=== PATIENT | female | born 1980 | race Caucasian/White ===

== ENCOUNTER 2024-06-18 06:29 | Emergency (ER) | payer OTHER, SELFPAY ==
--- NOTE | 2024-06-18 06:30 | XRR_ITS ---
PROCEDURE INFORMATION: Exam: XR Right Hip Exam date and time: 06/18/2024 6:32 AM Age: 43 years old Clinical indication: Hip pain; Right hip; Patient HX: Muscle cramp TECHNIQUE: Imaging protocol: Radiologic exam of the right hip. Views: 1 view hip with pelvis when performed. COMPARISON: No relevant prior studies available. FINDINGS: Bones/joints: No significant narrowing or spurring. No fracture or dislocation. No acute osseous or joint abnormality.. No acute fracture. Soft tissues: Unremarkable. XR/XR hip RT 2-3V wo/w pel* [id number] IMPRESSION: No acute findings.
[2024-06-18 06:40] VITALS: PULSE 87; RESP 16; O2SAT 97; BMI 37.6
[2024-06-18 06:43] VITALS: BP 188/121; PULSE 82; RESP 16; O2SAT 97
--- NOTE | 2024-06-18 06:45 | W.ED.GENADLT ---
HPI - General Adult General: Chief complaint: General Medical Stated complaint: Right hip pain Time Seen by Provider: 06/18/24 06:30 History of Present Illness: 43-year-old female presents emergency room with complaint of right hip pain. She was lying in bed slightly stretched extending her leg hip and pelvis simultaneously felt a popping sensation over the left hip had severe discomfort. She has been able to bear weight but is quite painful. She was concerned she dislocated her hip. No previous surgery or injury to the hip in the past. Associated symptoms: Deny chest pain, dyspnea or rash Related Data Previous Rx's Medication Instructions Recorded diclofenac sodium 75 mg 75 mg PO Q12H PRN pain #20 tabs 06/18/24 tablet,delayed release Review of Systems Const: Denies: fever(s) or chills Card: Denies: chest pain Resp: Denies: dyspnea GI: Denies: abdominal pain : Denies: dysuria, urinary frequency or urinary urgency Musc: Reports: joint pain (Right hip); Denies: neck pain or back pain Skin/Breast: Denies: rash Physical Exam Const: COMMON NORMALS: no acute distress GENERAL APPEARANCE: cooperative and comfortable ORIENTATION/CONSCIOUSNESS: Yes awake, Yes oriented to person, Yes oriented to place and Yes oriented to time HENMT: COMMON NORMALS: normocephalic, atraumatic and hearing grossly normal bilaterally HEAD & SCALP: normocephalic and atraumatic Resp: COMMON NORMALS: normal respiratory effort, No retractions, No use of accessory muscles and clear to auscultation bilaterally AUSCULTATION: clear to auscultation bilaterally Cardio: COMMON NORMALS: regular rate, regular rhythm and No murmurs present (Cardio) RATE: regular rate RHYTHM: regular rhythm GI: COMMON NORMALS: Soft to palpation and No hepatosplenomegaly present AUSCULTATION: Yes normoactive bowel sounds PALPATION: Yes Soft to palpation, No Tenderness to palpation present (GI), No Guarding due to palpation present (GI) and Yes No hepatosplenomegaly present Extremity: COMMON NORMALS: normal to inspection, capillary refill normal, no clubbing, cyanosis or edema, no calf tenderness and no pedal edema Neuro: SENSORIUM/ORIENTATION: Yes oriented to person, Yes oriented to place and Yes oriented to time Skin: COMMON NORMALS: no rashes or lesions noted GENERAL SKIN EXAM: no rashes or lesions noted Course Vital Signs: Vital signs: Vital Signs Pulse Rate 75 06/18/24 07:29 Respiratory Rate 16 06/18/24 06:43 Blood Pressure 190/109 06/18/24 07:29 Pulse Oximetry 97 06/18/24 07:29 Oxygen Delivery Me thod Room Air 06/18/24 06:43 MDM - General Adult Medical Decision Making No acute findings on x-ray. No fracture. Patient has pain with palpation over the greater trochanter. Suspect she had an articulation of her iliotibial band over the greater trochanter she localizes the pain posterior to the trochanter she is able to walk after anti-inflammatories although it is still somewhat uncomfortable. Blood pressure is elevated. She is going to follow-up with her primary care doctor for this. She discharged home with diclofenac follow-up as needed. We did ambulate patient prior to discharge to was able to bear weight. Lab Data Radiology Impressions Hip/Pelvis X-Ray 06/18/24 06:30 IMPRESSION: No acute findings. All radiology interpretation(s) finalized by discharge Discharge Plan Discharge Patient Disposition: Home Clinical Impression: Right hip pain Condition: Stable Prescriptions: New diclofenac sodium 75 mg tablet,delayed release (DR/EC) 75 mg PO Q12H PRN (Reason: pain) Qty: 20 0RF Discharge Orders: Discharge ED (Routine); Ordered 06/18/24 Ordered By: Sarthak Christianson Discharge Diet: Usual diet Discharge Activity: Increase activity as tolerated Patient Instructions: Opioid Safety, Pain Management Activity Restrictions/Additional Instructions: Thank you for choosing [facility] for your healthcare needs today. It is very important that you follow up as instructed or that you return to the Emergency Department should you have concerns or if your condition changes or worsens in any way. You were seen for right hip pain. X-ray did not show any acute fracture given your description of symptoms it sounds as if it is a soft tissue tendon issue. You can use ice over the lateral portion of the hip you can use the medications that were prescribed today as needed. Follow-up with your primary care doctor if your symptoms persist. Coding Level of Care Code ED Lubricating Machine Tender for Po Torres
[2024-06-18] MEDS: ketorolac 60 mg/2 mL INJ IM (07:01)
--- NOTE | 2024-06-18 07:06 | PC.NURSE ---
PT PRESENTS WITH COMPLAINT OF RIGHT HIP PAIN AFTER EXTENDED HER LEGS WHILE STRETCHING AND STATES SHE FELT HER HIP POP AND HAS HAD DIFFICULTY AMBULATING SINCE. PT DENIES HX OF ISSUE WITH HIP. PT RATES PAIN 04/23. PT DENIES FALLING. PT IS ALERT AND ORIENTED WITH EVEN, UNLABORED RESPIRATIONS WITH PATENT AIRWAY.
[2024-06-18 07:29] VITALS: BP 190/109; PULSE 75; O2SAT 97
== END 2024-06-18 07:44 | disposition home or self-care (01) ==
PROVIDERS: Emergency Provider Family Medicine
DX: M25.551 Pain in right hip (principal)
CPT/HCPCS: 73502; 96372; 99284; J1885

== ENCOUNTER 2024-06-20 14:18 | Outpatient (CLI) | payer OTHER, SELFPAY ==
--- NOTE | 2024-06-20 14:21 | MM_ITS ---
WS: [id number] BILATERAL 3D TOMOSYNTHESIS DIGITAL SCREENING MAMMOGRAPHY WITH CAD CLINICAL INFORMATION: SCREENING HISTORY: Screening mammogram. No current complaints. COMPARISON: 2020 TECHNIQUE: Bilateral CC and MLO views. FINDINGS: Scattered fibroglandular densities bilaterally. No suspicious focal mass, asymmetry, calcifications, or architectural distortion. No evidence of malignancy. Scattered bilateral tiny punctate calcificati ons. MM/MM scr BI tomosynthesis [id number] IMPRESSION: DENSITY: There are scattered areas of fibroglandular density. BI-RADS: 2 - Benign. FOLLOW UP: 1 Year Follow-up Recommend return to annual screening mammography.
== END 2024-06-20 14:19 | disposition home or self-care (01) ==
LOC: RAD 14:19
PROVIDERS: PCP Family Medicine; Visit Provider Family Medicine
DX: Z12.31 Encounter for screening mammogram for malignant neoplasm of breast (principal); R92.323 Mammographic fibroglandular density, bilateral breasts; R92.1 Mammographic calcification found on diagnostic imaging of breast
CPT/HCPCS: 77063; 77067

== ENCOUNTER 2025-02-13 13:49 | Outpatient (CLI) | payer OTHER, SELFPAY ==
--- NOTE | 2025-02-13 13:53 | CT_ITS ---
WS: [id number] CT scan of the chest with IV contrast, additional two-dimensional coronal and sagittal reconstruction was performed. 02/13/2025 Clinical Data: RIGHT LOWER LOBE NODULE Comparison: None. DLP: 641.[address] scans at [facility] use at least one of these dose optimization techniques: automated exposure control; mA and/or kV adjustment per patient size (includes targeted exams where dose is matched to clinical indication); or iterative reconstruction. Findings: No right lower lobe nodules are seen. However there is a soft tissue density measuring 2.5 cm in the medial aspect of the left upper lobe at the T4 level. No enhancement of this density occurs. The heart size is normal with no pericardial effusion. The pulmonary arterial system and thoracic aorta demonstrate no abnormalities or dilatations. The trachea bifurcates into the bronchi. There is no axillary or significant mediastinal adenopathy. The upper abdomen shows no abnormalities. CT/CT chest w con* [id number] Impression: 1. Negative for right lower lobe nodules. 2. Nonspecific soft tissue density in the medial aspect of the left upper lobe T4 level, 2.5 cm. Recommend MRI of the thoracic spine.
[2025-02-13] MEDS: iohexol 350 mg/mL 500 mL Btl (per mL) IV (14:09)
== END 2025-02-13 13:50 | disposition home or self-care (01) ==
PROVIDERS: PCP Family Medicine; Visit Provider Nurse Practitioner
DX: Z01.89 Encounter for other specified special examinations (principal); R93.89 Abnormal findings on diagnostic imaging of other specified body structures
CPT/HCPCS: 71260

== ENCOUNTER 2025-04-02 15:48 | Outpatient (CLI) | payer OTHER, SELFPAY ==
--- NOTE | 2025-04-02 15:51 | MR_ITS ---
WS: [id number] MRI THORACIC SPINE with and without contrast HISTORY: SOFT TISSUE DENSITY NEAR T4 COMPARISON: Chest CT 02/13/2025 TECHNIQUE: Multiplanar sequences are performed in sagittal and axial planes. Post MultiHance 20 mL IV. Mild increase in thoracic kyphosis. No acute fractures or marrow edema. Signal within the cord is normal Paraspinal soft tissue mass is identified at the L4 lesion on the LEFT. This mass conforms to the space between the T4 vertebral body and the descending thoracic aorta. Cystic mass measures 1.4 x 3.0 cm and does not enhance. No additional cysts are identified. Cyst does not extend into the neural foramen. No soft tissue component. T1-2: Normal. T2-3: Normal. T3-4: Facet joint arthritis. T4-5: Bilateral facet joint arthritis and foraminal narrowing. T5-6: Normal. T6-7: Facet joint arthritis and mild foraminal narrowing. T7-8: Facet joint arthritis and foraminal narrowing. T8-9: Small central disc protrusion effaces CSF and contacts the cord. Mild central and foraminal stenosis. T9-10: Mild disc bulging. Mild central stenosis and facet arthritis. T10-11: Bilateral facet arthritis. LEFT foraminal stenosis. T11-12: RIGHT paracentral disc protrusion contacts the RIGHT lateral thecal sac. Mild central with foraminal stenosis. No enhancing masses are identified. Normal signal within the cord. MR/MR thoracic spine wo/w [id number] IMPRESSION: 1. Mass described on recent CT in the LEFT paraspinal T4 location is a cyst. T here is no enhancement or soft tissue component. Paravertebral cyst measures 1. 4 x 3.0 cm. 2. 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 3. Small central disc protrusion at T8-9 and RIGHT paracentral disc protrusion at T10-11. 4. Mild central stenosis at T8-9 and T9-10.
== END 2025-04-02 15:49 | disposition home or self-care (01) ==
LOC: RAD 15:49
PROVIDERS: PCP Family Medicine; Visit Provider Nurse Practitioner
DX: M71.38 Other bursal cyst, other site (principal); M47.814 Spondylosis without myelopathy or radiculopathy, thoracic region; M51.24 Other intervertebral disc displacement, thoracic region; M48.04 Spinal stenosis, thoracic region
CPT/HCPCS: 72157

== ENCOUNTER 2025-08-13 15:40 | Outpatient (CLI) | payer OTHER, SELFPAY ==
--- NOTE | 2025-08-13 15:54 | US_ITS ---
WS: [id number] US pelvic complete* [id number] HISTORY: AUB COMPARISON: None available. Uterus: 9.3 cm x 5.6 cm x 5.1 cm. Uterus is retroverted. No fibroid or mass identified. Endometrium: 1.8 cm. Enlarged hyperechoic endometrium with a few scattered cystic areas. No increased vascularity. Right ovary: 2.5 cm x 2.5 cm x 2.2 cm. Normal size, no cystic or solid masses. Color Doppler is difficult to obtain due to deep position of the ovary. Left ovary: 3.0 cm x 2.7 cm x 2.8 cm. Normal size and vascularity, no cystic or solid masses. Several small peripheral follicles. No free fluid in the cul-de-sac. US/US pelvic complete* [id number] IMPRESSION: 1. Abnormal endometrium. Favor endometrial hyperplasia. Differential includes large polyp versus neoplasm. Recommend endometrial biopsy. 2. Normal size uterus. No fibroid.
== END 2025-08-13 15:41 | disposition home or self-care (01) ==
LOC: RAD 15:41
PROVIDERS: PCP Family Medicine; Visit Provider Nurse Practitioner
DX: Z01.89 Encounter for other specified special examinations (principal); R93.89 Abnormal findings on diagnostic imaging of other specified body structures; N84.0 Polyp of corpus uteri
CPT/HCPCS: 76856

== ENCOUNTER 2025-09-09 08:35 | Emergency (ER) | payer OTHER, SELFPAY ==
--- NOTE | 2025-09-09 08:47 | CTR_ITS ---
PROCEDURE INFORMATION: Exam: CT Head Without Contrast Exam date and time: 09/09/2025 8:53 AM Age: 45 years old Clinical indication: Stroke-like symptoms; Other: Stroke symptoms; Additional info: Symptoms of acute stroke TECHNIQUE: Imaging protocol: Computed tomography of the head without contrast. Radiation optimization: All CT scans at this facility use at least one of these dose optimization techniques: automated exposure control; mA and/or kV adjustment per patient size (includes targeted exams where dose is matched to clinical indication); or iterative reconstruction. Other technique: STROKE PROTOCOL was implemented. COMPARISON: No relevant prior studies available. RADIATION DOSE METRICS: Total DLP (mGy-cm): 1089.6 FINDINGS: Brain: Normal. No hemorrhage. Unremarkable white matter. No mass effect. Cerebral ventricles: No ventriculomegaly. Paranasal sinuses: Visualized sinuses are unremarkable. No fluid levels. Mastoid air cells: Visualized mastoid air cells are well aerated. Bones: Unremarkable. No acute fracture. Soft tissues: Unremarkable. CT/CT head thrombolytic [id number] IMPRESSION: No acute intracranial abnormality. ASSESSMENT: ASPECTS (Tara Stroke Program Early CT Score) is 10.
--- NOTE | 2025-09-09 08:51 | ECG_ITS ---
[facility] Test Date: 2025-09-09 Pat Name: Caryl Jimenez Department: Room: Gender: Female Communicable Disease Specialist: : 1980 Requested By: Gabbi Hernandez Order Number: [id number] Dowd MD: Roberto Carlos Estes M.D. Measurements Intervals [place] Rate: 106 P: 48 AL: 170 QRS: -42 QRSD: 106 T: 59 QT: 347 QTc: 461 Interpretive Statements SINUS TACHYCARDIA LEFT AXIS DEVIATION [QRS AXIS < -30] INCOMPLETE RIGHT BUNDLE BRANCH BLOCK No previous ECG available for comparison Electronically Signed On 09-10-2025 17:40:04 SIGNS CLEANER by Roberto Carlos Estes M.D. [email or web address]
[2025-09-09 08:53] VITALS: BP 211/128; PULSE 90; RESP 20; TEMP 36.8; O2SAT 98
[2025-09-09 08:58] LABS: Hematocrit 48.2 % (36-47); Hemoglobin 15.60 g/dL (11.27-16.99); Mean Corpuscular HGB Conc 32.4 g/dL (30-55); Mean Corpuscular Hemoglobin 27.5 pg (27-33); Mean Corpuscular Volume 85.0 fl (85-98); Nucleated Red Blood Cells % 0 %; Platelet Count 305 10^3/cmm (157-399); Red Blood Count 5.67 10^6/uL (3.85-5.65); White Blood Count 8.91 10^3/uL (3.29-11.43)
[2025-09-09 09:04] VITALS: BP 192/114; PULSE 96; O2SAT 97
[2025-09-09 09:10] LABS: INR 0.87 (0.8-1.2); Partial Thromboplastin Time 25.5 SECONDS (23.9-36.7); Prothrombin Time 12.50 SECONDS (12.1-14.9)
[2025-09-09 09:17] LABS: Troponin(5th) Baseline 8 ng/L (0-10)
[2025-09-09 09:20] LABS: Glucose Urine UA 3+ (Normal); Nitrate Urine Negative (Negative)
[2025-09-09 09:22] LABS: Alanine Aminotransferase 43 U/L (0-33); Albumin Level 4.6 g/dL (3.5-5.2); Alkaline Phosphatase 113 U/L (35-105); Anion Gap 18.1 (5-19); Aspartate Amino Transferase 26 U/L (0-32); Blood Urea Nitrogen 11 mg/dL (6-20); Calcium 9.0 mg/dL (8.5-10.5); Carbon Dioxide 24 mmol/L (22-29); Chloride 101 mmol/L (98-107); Globulin 3.5 g/dL (1.3-4.6); Glucose 185 mg/dL (65-115); Osmolality Calculated 294 mOsm/kg (285-295); Potassium 3.1 mmol/L (3.5-5.1); Sodium 140 mmol/L (136-145); Total Protein 8.1 g/dL (6.6-8.7)
--- NOTE | 2025-09-09 09:23 | W.ED.NEUROSD ---
HPI - Neuro Symptoms/Deficit General: Chief Complaint: Neuro Symptoms/Deficit Stated Complaint: high BP, blurred vision Time Seen by Provider: 09/09/25 08:41 History of Present Illness: 45-year-old female with a history of hypertension for which she has not been taking any meds and obesity who presents to the emergency room with blurred vision and hypertension. She was at work and was looking back and forth tween computer screen and other things and felt like her vision was blurred and so fellow employee checked her blood pressure and it was well over 200 systolic. No chest pain. No shortness of breath. No altered mental status. No focal motor deficits. No facial droop. No fevers. No nausea or vomiting. Related Data Home Medications ?Medication ?Instructions ?Recorded ?Confirmed empagliflozin 25 mg tablet 12.5 mg PO QAM 09/09/25 09/09/25 (Jardiance) Previous Rx's ?Medication ?Instructions ?Recorded clonidine HCl 0.1 mg tablet 0.1 mg PO DAILY PRN hypertension 09/09/25 #20 tabs lisinopril 20 1 tab PO DAILY #30 tabs 09/09/25 mg-hydrochlorothiazide 12.5 mg tablet Allergies Allergy/AdvReac Type Severity Reaction Status Date / Time No Known Allergies Allergy Verified 03/11/25 17:22 Review of Systems Narrative: Constitutional symptoms: Negative except as documented in HPI. Skin symptoms: Negative except as documented in HPI. Eye symptoms: Negative except as documented in HPI. ENMT symptoms: Negative except as documented in HPI. Respiratory symptoms: Negative except as documented in HPI. Cardiovascular symptoms: Negative except as documented in HPI. Gastrointestinal symptoms: Negative except as documented in HPI. Genitourinary symptoms: Negative except as documented in HPI. Musculoskeletal symptoms: Negative except as documented in HPI. Neurologic symptoms: Negative except as documented in HPI. Psychiatric symptoms: Negative except as documented in HPI. Endocrine symptoms: Negative except as documented in HPI. PFSH ED PFSH: Social History Smoking and tobacco/nicotine status: former use of tobacco/nicotine Physical Exam Narrative: EXAM NARRATIVE: General: Alert, no acute distress. Skin: Warm, dry. Head: Normocephalic, atraumatic. Neck: Supple, trachea midline. Eye: Extraocular movements are intact. Ears, nose, mouth and throat: mucosa moist. Cardiovascular: Regular, Normal peripheral perfusion. Respiratory: Lungs are clear to auscultation, respirations are non-labored, breath sounds are equal, Symmetrical chest wall expansion. Gastrointestinal: Soft, Nontender, Non distended Musculoskeletal: Normal ROM, no deformity. Neurological: Alert and oriented, No focal neurological deficit observed. Psychiatric: Cooperative, appropriate mood & affect. Course Vital Signs: Vital signs: Vital Signs Temperature 98.2 F 09/09/25 08:53 Pulse Rate 90 09/09/25 10:00 Respiratory Rate 20 H 09/09/25 09:30 Blood Pressure 159/87 09/09/25 10:00 Pulse Oximetry 96 09/09/25 10:00 Oxygen Delivery Me thod Room Air 09/09/25 09:30 MDM - Neuro Symptoms/Deficit Medical Decision Making Medical decision making Patient's reason for coming to the emergency room: Hypertension, blurred vision Social determinants: Patient is employed I reviewed the patient's medical record. Patient has only been seen a couple times here for acute issues. Says she does follow with a primary physician who has her on Jardiance. I reviewed the patient's current home meds Patient's only medication is Jardiance. She states she is refused hypertensive meds in the past. Alternate historians: None Differential diagnosis including but not limited to and based on the above HPI, review of systems and physical exam: Patient presents with hypertension: Essential hypertension. Stroke. acute coronary syndrome. kidney failure. congestive heart failure. anxiety. Orders placed to evaluate differential diagnosis based on the above differential, HPI and physical exam This was called out as a stroke initially because of patient's blurred vision. Very vague blurring of visions which seems more likely due to her blood pressure or possibly developing presbyopia. CT head: No acute intracranial process. No intracranial hemorrhage, no evidence of infarct. No evidence of acute fracture. This was reviewed and interpreted by myself the emergency room physician. I also reviewed the radiology report. Chest x-ray: No acute process. No infiltrate. No pneumothorax. This was reviewed and interpreted by myself the emergency room physician. I also reviewed the radiology report. Lab Review: Laboratory results were reviewed and interpreted by myself the emergency room physician. No leukocytosis. No anemia. No renal failure. Serial cardiac markers are negative. Urinalysis is negative for infection. Liver enzymes are normal. Assessment of risk: Level of risk: Moderate risk. Hospitalization considerations: Considered admission but patient is relatively asymptomatic Reexamination: Blood pressure is improved quite a bit with a single dose of clonidine. Going to go ahead and start her on some lisinopril hydrochlorothiazide at home. Her physician can change this if they feel necessary. No increased work of breathing. No altered mental status. No focal motor deficits. Assessment and plan: Accelerated hypertension ?Clonidine in the emergency room - Discharged home - Discussed plan with patient. Answered any questions. - Evaluation and treatment of this problem were appropriate in the emergency setting. Lab Data 09/09/25 08:53 09/09/25 08:[address] 09/09/25 08:47 IMPRESSION: No acute intracranial abnormality. ASSESSMENT: ASPECTS (Tara Stroke Program Early CT Score) is 10. ADDENDUM: 09/09/25908 THIS REPORT CONTAINS FINDINGS THAT MAY BE CRITICAL TO PATIENT CARE. The findings were verbally communicated via telephone conference with GABBI RANGEL at 9:07 AM ONCOLOGY NAVIGATOR on 09/09/2025. The findings were acknowledged and understood. Chest X-Ray 09/09/25 09:29 IMPRESSION: No acute findings. Laboratory Results WBC 8.91 10^3/uL (3.29-11.43) 09/09/25 08:53 RBC 5.67 10^6/uL (3.85-5.65) H 09/09/25 08:53 Hgb 15.60 g/dL (11.27-16.99) 09/09/25 08:53 Hct 48.2 % (36-47) H 09/09/25 08:53 MCV 85.0 fl (85-98) 09/09/25 08:53 MCH 27.5 pg (27-33) 09/09/25 08:53 MCHC 32.4 g/dL (30-55) 09/09/25 08:53 RDW 13.0 % (12.1-15.1) 09/09/25 08:53 Plt Count 305 10^3/cmm (157-399) 09/09/25 08:53 MPV 10.1 fL (7.4-10.4) 09/09/25 08:53 Neut % (Auto) 52.2 % 09/09/25 08:53 Lymph % (Auto) 39.5 % 09/09/25 08:53 [place] % (Auto) 5.8 % 09/09/25 08:53 Eos % (Auto) 1.9 % 09/09/25 08:53 Baso % (Auto) 0.4 % 09/09/25 08:53 Neut # (Auto) 4.64 10^3/uL (1.8-7.7) 09/09/25 08:53 Lymph # (Auto) 3.5 10^3/uL (0.8-4.8) 09/09/25 08:53 [place] # (Auto) 0.5 10^3/uL (0.2-0.9) 09/09/25 08:53 Eos # (Auto) 0.2 10^3/uL (0.0-0.8) 09/09/25 08:53 Baso # (Auto) 0.0 10^3/uL (0.0-0.1) 09/09/25 08:53 Nucleated RBC % (auto) 0 % 09/09/25 08:53 Nucleated RBCs # 0.0 /100WBC 09/09/25 08:53 PT 12.50 SECONDS (12.1-14.9) 09/09/25 08:53 INR 0.87 (0.8-1.2) 09/09/25 08:53 APTT 25.5 SECONDS (23.9-36.7) 09/09/25 08:53 Sodium 140 mmol/L (136-145) 09/09/25 08:53 Potassium 3.1 mmol/L (3.5-5.1) L 09/09/25 08:53 Chloride 101 mmol/L (98-107) 09/09/25 08:53 Carbon Dioxide 24 mmol/L (22-29) 09/09/25 08:53 Anion Gap 18.1 (5-19) 09/09/25 08:53 BUN 11 mg/dL (6-20) 09/09/25 08:53 Creatinine 0.6 mg/dL (0.5-0.9) 09/09/25 08:53 GFR Calculation 107.6 mL/min (90-130) 09/09/25 08:53 Glucose 185 mg/dL (65-115) H 09/09/25 08:53 POC Glucose 172 mg/dL (70-110) H 09/09/25 09:02 Calculated Osmolality 294 mOsm/kg (285-295) 09/09/25 08:53 Calcium 9.0 mg/dL (8.5-10.5) 09/09/25 08:53 Total Bilirubin 0.3 mg/dL (0.15-1.2) 09/09/25 08:53 AST 26 U/L (0-32) 09/09/25 08:53 ALT 43 U/L (0-33) H 09/09/25 08:53 Alkaline Phosphatase 113 U/L (35-105) H 09/09/25 08:53 Troponin T Baseline 8 ng/L (0-10) 09/09/25 08:53 Troponin T 120 Minute 8.39 ng/L (0-10) 09/09/25 09:45 Delta Troponin T 0.39 ABS# (0-10) 09/09/25 09:45 Total Protein 8.1 g/dL (6.6-8.7) 09/09/25 08:53 Albumin 4.6 g/dL (3.5-5.2) 09/09/25 08:53 Globulin 3.5 g/dL (1.3-4.6) 09/09/25 08:53 Urine Color Yellow (Yellow) 09/09/25 09:05 Urine Appearance Clear (CLEAR) 09/09/25 09:05 Urine pH 5.5 (5-7) 09/09/25 09:05 Ur Specific [place] 1.031 (1.005-1.030) H 09/09/25 09:05 Urine Protein Trace (Negative) A 09/09/25 09:05 Urine Glucose (UA) 3+ (Normal) H 09/09/25 09:05 Urine Ketones Negative (Negative) 09/09/25 09:05 Urine Blood 2+ (Negative) A 09/09/25 09:05 Urine Nitrate Negative (Negative) 09/09/25 09:05 Urine Bilirubin Negative (Negative) 09/09/25 09:05 Urine Urobilinogen 0.2 mg/dL (Negative) 09/09/25 09:05 Ur Leukocyte Esterase Negative (Negative) 09/09/25 09:05 Urine RBC 0-2 /hpf (0-2) 09/09/25 09:05 Urine WBC 0-5 /hpf (0-5) 09/09/25 09:05 Ur Squamous Epith Cells 6-10 /hpf (0-5) 09/09/25 09:05 Amorphous Sediment Not Reportable 09/09/25 09:05 Urine Bacteria Trace /hpf (NONE) 09/09/25 09:05 Hyaline Casts 0-4 /lpf H 09/09/25 09:05 Urine Opiates Screen Negative ng/mL (Negative) 09/09/25 09:05 Ur Barbiturates Screen Negative ng/mL (Negative) 09/09/25 09:05 Ur Phencyclidine Scrn Negative ng/mL (Negative) 09/09/25 09:05 Ur Amphetamines Screen Negative ng/mL (Negative) 09/09/25 09:05 U Benzodiazepines Scrn Negative ng/mL (Negative) 09/09/25 09:05 Urine Cocaine Screen Negative ng/mL (Negative) 09/09/25 09:05 U Marijuana (THC) Screen Negative ng/mL (Negative) 09/09/25 09:05 All radiology interpretation(s) finalized by discharge Discharge Plan Discharge Patient Disposition: Home Clinical Impression: Accelerated hypertension Condition: Stable Prescriptions: New clonidine HCl 0.1 mg tablet 0.1 mg PO DAILY PRN (Reason: hypertension) Qty: 20 0RF Rx Instructions: For Systolic >185 diastolic >100. If you are needing this more than once a day you need to follow with your primary care provider lisinopril-hydrochlorothiazide 20-12.5 mg tablet 1 tab PO DAILY Qty: 30 1RF No Action Jardiance 25 mg Tablet 12.5 mg PO QAM Discharge Orders: Discharge ED (Routine); Ordered 09/09/25 Ordered By: Gabbi Rangel Referrals: Lyly Jauregui DO [Primary Care Provider, OVERHEAD IRRIGATOR] Discharge Diet: Usual diet Discharge Activity: Increase activity as tolerated Patient Instructions: Hypertension (ED), Opioid Safety, Pain Management, Patient Portal & Kathi Instructions Activity Restrictions/Additional Instructions: Thank you for choosing [facility] for your healthcare needs today. You have been screened and evaluated and felt safe for discharge. Health conditions do change or evolve sometimes and as such it is important that you follow up with your Primary Doctor to be re checked, 3-5 days is a general good time frame for follow up. You are always welcome to return to the ED for re assessment if your symptoms are worsening or you have new concerns Print Language: Macedonian Coding Level of Care Code ED Business Loan Processor for Po Torres
[2025-09-09 09:26] LABS: Add Urine Microscopic? YES; Universal Test for UA Present (0)
[2025-09-09 09:27] LABS: PCP Screen Urine Negative (Negative)
--- NOTE | 2025-09-09 09:29 | XRR_ITS ---
PROCEDURE INFORMATION: Exam: XR Chest Exam date and time: 09/09/2025 9:35 AM Age: 45 years old Clinical indication: Condition or disease; Other: HTN TECHNIQUE: Imaging protocol: Radiologic exam of the chest. Views: 1 view. COMPARISON: CT chest w con* [id number] 02/13/2025 2:03 PM FINDINGS: Lungs: Unremarkable. No consolidation. Pleural spaces: Unremarkable. No pleural effusion. No pneumothorax. Heart/Mediastinum: Unremarkable. No cardiomegaly. Bones/joints: Unremarkable. XR/XR chest 1V portable [id number] IMPRESSION: No acute findings.
[2025-09-09 09:30] VITALS: BP 163/113; PULSE 93; RESP 20; O2SAT 96
[2025-09-09 09:33] LABS: Specific Gravity, Urine 1.031 (1.005-1.030); UA Slide Review UA Slide Review Perf
[2025-09-09 09:34] VITALS: BP 168/113
[2025-09-09 10:00] VITALS: BP 159/87; PULSE 90; O2SAT 96
--- NOTE | 2025-09-09 10:01 | PC.PHAR ---
[facility]
[2025-09-09 10:10] LABS: Troponin 5 2HR 8.39 ng/L (0-10); Troponin 5 2HR Delta 0.39 ABS# (0-10)
[2025-09-09 10:31] VITALS: BP 152/84; PULSE 87; O2SAT 98
== END 2025-09-09 10:32 | disposition home or self-care (01) ==
PROVIDERS: Emergency Provider Emergency Medicine; PCP Family Medicine
DX: I10 Essential (primary) hypertension (principal); Z87.891 Personal history of nicotine dependence
CPT/HCPCS: 36415; 36416; 70450; 71045; 80053; 80306; 81001; 82962; 84484; 85025; 85610; 85730; 93005; 99285; J9999

== ENCOUNTER 2025-09-21 11:42 | Outpatient (CLI) | payer OTHER, SELFPAY ==
--- NOTE | 2025-09-21 | ECG_ITS ---
[facility] Test Date: 2025-09-21 Pat Name: Caryl Jimenez Department: Room: Gender: Female Academic Affairs Assistant: : 1980 Requested By: Milena Beck Order Number: [id number] Noemí MD: LADI TREVIZO Interpretive Statements Lung unchanged pre/post procedure; Intraprocedure shortess of breath; Symptoms resoled by discharge EXERCISE DATA: The patient was exercised by Toribio protocol. Baseline heart rate was 81 beats per minute. Baseline blood pressure was 148/99 millimeters of mercury. Target heart rate was 174 beats per minute. Maximum heart rate achieved was 148, which was 85% of the target heart rate. Maximum blood pressure was 205/114 millimeters of mercury. Total exercise time was 8 minutes and 11 seconds. Maximum METs achieved was 10.2, maximum VO2 was 35.2. The reason for ending the test was maximum effort achieved. The patient complained of shortness of breath during the stress test, which then resolved at the end of the test. ELECTROCARDIOGRAM: BASELINE: Showed sinus rhythm, normal axis, no significant ST-T changes at the baseline noted. EXERCISE: At the peak exercise level, no significant ST-T changes suggestive of ischemia noted. RECOVERY: During the recovery period, heart rate dropped appropriately. No significant ST-T changes in the recovery suggestive of ischemia noted. CONCLUSION: 1. Exercise capacity good. 2. Heart rate response was appropriate. 3. Blood pressure response was hypertensive. 4. Symptoms not suggestive of ischemia. 5. Electrocardiogram portion of the stress test was not suggestive of ischemia. 6. Nuclear scan will be documented separately. Electronically Signed On 09-27-2025 18:09:41 SASH MAKER by LADI TREVIZO [email or web address]
[2025-09-21 11:55] VITALS: BMI 36.2
[2025-09-21 12:28] VITALS: BP 133/80; PULSE 94
== END 2025-09-21 11:43 | disposition home or self-care (01) ==
LOC: CDL 11:43
PROVIDERS: PCP Family Medicine; Visit Provider Nurse Practitioner
DX: R07.9 Chest pain, unspecified (principal); R93.1 Abnormal findings on diagnostic imaging of heart and coronary circulation
CPT/HCPCS: 93017